=== PATIENT | female | born 1995 | race Caucasian/White ===

== ENCOUNTER 2016-12-20 20:34 | Emergency (ER) | payer OTHER ==
--- NOTE | 2016-12-20 23:16 | ED NURSING NOTES ---
Clinical Report - Nurses [facility] [address] [place] [address] 12/20/2016 20:39 Patient: JESSICA VELASCO TRIAGE Triage time 20:47 Dec 20 2016. Acuity: LEVEL 4. Chief Complaint: RIGHT LOWER EXTREMITY PAIN. Alert. No acute distress. BEREKET COMA SCORE: [place] Coma Scale: 15- eyes open spontaneously (4); best verbal response- oriented x 4 (5); best motor response- obeys commands (6). --20:55 Tami Ghosh R.N. 20:47 12/20/16. BP: 142/77. HR: 110. RR: 16. O2 saturation: 97%. Temp: 98.7 F. Pain level now: 12/11. --20:55 Tami Ghosh R.N. Weight: 120.2 kg stated. Height/Length: 69 inches Per Patient. BMI: 39.2. --20:55 Tami Ghosh R.N. Medications None. --20:52 Tami Ghosh R.N. Allergies Codeine. --20:52 Tami Ghosh R.N. History Arrived by private vehicle. Historian: patient. No injury occurred. This occurred (about 2 weeks ago). It is described as radiating (right toes). She has had trouble walking. Treatment SAND FILLER: Ice and (walking boot). PAST MEDICAL HX: Tetanus status: up-to-date. Immunizations: up-to-date. Last normal menstrual period- has nexplanon implant so LMP was several months ago. SOCIAL HX: Current every day heavy tobacco smoker (cigarette)- less than 1 pack per day. Occasional alcohol use. No drug use. No infectious disease exposure. SELF HARM ASSESSMENT: A self harm assessment was performed. The patient answered "no" to the question "Do you have thoughts of harming or killing yourself?" and "Have you recently had thoughts about harming or killing others?". FALL RISK ASSESSMENT: Fall risk assessment completed. No fall risk identified. NUTRITIONAL RISK ASSESSMENT: The nutritional risk assessment revealed no deficiencies. FUNCTIONAL ASSESSMENT: Functional assessment: no impairments noted. LEARNING NEEDS ASSESSMENT: The learning needs assessment revealed no barriers. ABUSE ASSESSMENT: Abuse assessment: The patient was asked "Do you feel safe in your home?". SKIN INTEGRITY ASSESSMENT: Skin integrity risk assessment completed. No skin integrity risk identified. --20:55 Tami Ghosh R.N. ( pt states that she went to walk-in clinic and was told that she had "torn tendons"). --20:57 Tami Ghosh R.N. PROBLEMS: None. --20:52 Tami Ghosh R.N. ADDITIONAL SURGERIES: Dental Surgery. Tonsillectomy. --20:52 Tami Ghosh R.N. Interventions ID band on patient. To room. --20:55 Tami Ghosh R.N. PHYSICAL ASSESSMENT Ambulatory to room. GENERAL / NEURO / PSYCH: Oriented X 4. Alert. Appears in no acute distress. EXTREMITIES: Extremity pulses are within normal limits. Neuro-vascular status intact to the extremity. No lower extremity edema. Right foot, plantar aspect: tenderness. SKIN: Skin is warm and dry. --20:56 Tami Ghosh R.N. NURSING PROGRESS NOTES Patient identifiers checked. Call light placed in reach. Side rails up. Bed placed in lowest position. Brakes of bed on. --20:56 Tami Ghosh R.N. Care transferred and report received. --22:22 Breana Mello R.N. Portable right foot x-ray performed. --22:46 Breana Mello R.N. Patient informed about reason for wait and about plan of care. --23:04 Breana Mello R.N. DISPOSITION / DISCHARGE Condition at departure: stable. No learning barriers present. Discharge instructions provided and reviewed with the patient. Reviewed medication(s) side effects, precautions, dosing and course information. Prescription(s) given to the patient. Patient verbalized understanding. Written instructions provided in Thai. The patient was discharged home. She left the Emergency Department ambulatory and via private vehicle. --23:34 Breana Mello R.N. 23:20 12/20/16. BP: deferred. HR: 96. RR: 15. O2 saturation: 98% on room air. Temp: deferred. Pena-Youngblood pain scale: 09/11. --23:34 Breana Mello R.N. Locked/Released at 12/20/2016 23:34 by Breana Mello R.N.
--- NOTE | 2016-12-20 23:16 | ED CLINICAL REPORT ---
Clinical Report - Physicians/Mid Levels [facility] [address] [place] [place] [address] 12/20/2016 20:39 Patient: JESSICA VELASCO Time Seen: 20:48. Arrived- By private vehicle. HISTORY OF PRESENT ILLNESS Chief Complaint: LOWER EXTREMITY PAIN. This started several weeks ago and is still present. It was gradual in onset and has been constant and waxing/waning. Severity is described as being severe. It has become recently worse. The quality is noted to be aching and "pain". Symptoms located in the area of the right foot. The patient has had difficulty walking. No sensory loss or motor loss. ( she says that it is worse in the morning when she first tries to walk). Patient denies an injury. Recent medical care: The patient was seen recently at another facility. Seen for similar symptoms. Evaluation/treatment- she was given a walker boot No x-rays performed. Diagnosis: ("torn tendons"). REVIEW OF SYSTEMS she came here because she says that she can't get in to see her PCP for a month. All systems otherwise negative, except as recorded above. PAST HISTORY Medications: None. Allergies: Codeine. SOCIAL HISTORY Current every day heavy tobacco smoker (cigarette)- less than 1 pack per day. Occasional alcohol use. No drug use. FAMILY HISTORY No significant family medical history. ADDITIONAL NOTES The nursing notes have been reviewed. PHYSICAL EXAM Vital Signs: 12/20/2016 20:47 BP: 142/77. HR: 110. RR: 16. O2 saturation: 97%. Temp: 98.7 F. Pain level now: 7/10. Have been reviewed. Appearance: Alert. Eyes: Pupils equal, round and reactive to light. ENT: Pharynx normal. Neck: Neck supple. CVS: Normal heart rate and rhythm. Heart sounds normal. Respiratory: No respiratory distress. Breath sounds normal. Abdomen: Soft and nontender. No organomegaly. Back: Normal inspection. Skin: Skin warm and dry. Normal skin color. Normal skin turgor. Extremities: Right foot: moderate swelling located in the plantar aspect of the foot and heel. No signs of infection involving the lower extremities. No calf tenderness. Extremities otherwise negative. Gait: Gait not tested due to pain. LABS, X-RAYS, AND EKG X-Rays: Right foot negative. The X-rays were independently viewed by me. PROGRESS AND PROCEDURES Course of Care: Patient is stable. Patient/family counseled. Old medical records ordered. Disposition: Discharged. Condition: stable. CLINICAL IMPRESSION Right plantar fasciitis INSTRUCTIONS You may walk and bear weight as tolerated. (Discontinue the use of your Orthopedic boot as discussed. Talk with the order detailer about whether you would benefit from physical therapy as discussed.). Warnings: Further evaluation is necessary. GENERAL WARNINGS: Return or contact your physician immediately if your condition worsens or changes unexpectedly, if not improving as expected, or if other problems arise. Prescription Medications: Naproxen 500 mg tablets: take 1 orally every 12 hours as needed for pain. Dispense twenty (20). No refills. plantar orthotics dispensed one pair use as directed. Understanding of the discharge instructions verbalized by patient. Follow-up with: Cristo Nance DPM, Podiatry, , [facility], [address] [place] [address], [address] [place] [address] Follow up in seven days. Call for the next available appointment. (Electronically signed by Faisal Valle MD 12/21/2016 3:07)
--- NOTE | 2016-12-20 23:16 | ED ORDER SUMMARY ---
..... Patient: JESSICA VELACSO OrderSheet [facility] VisitID: [id number] [address] [place] [address] 21y, F Registration Date/Time: 12/20/2016 ORDER SHEET Weight: 120.2 kg (stated) Allergies: Codeine GENERAL ORDERS: Foot 3V Right Urgent (21:06 12/20/2016 Taz VALDIVIA) (21:12 [facility]) MEDICATION ORDERS: IV FLUIDS: ORDER SHEET NOTES: [Electronically signed by Breana Mello R.N. (23:34 12/20/2016)] [Electronically signed by Faisal Valle MD (03:07 12/21/2016)] [Electronically locked/signed by Breana Mello R.N. (23:34 12/20/2016)]
--- NOTE | 2016-12-20 23:16 | ED NURSING NOTES ---
Clinical Report - Nurses [facility] [address] [place] [address] 12/20/2016 20:39 Patient: JESSICA VELASCO TRIAGE Triage time 20:47 Dec 20 2016. Acuity: LEVEL 4. Chief Complaint: RIGHT LOWER EXTREMITY PAIN. Alert. No acute distress. BEREKET COMA SCORE: [place] Coma Scale: 15- eyes open spontaneously (4); best verbal response- oriented x 4 (5); best motor response- obeys commands (6). --20:55 Tami Ghosh R.N. 20:47 12/20/16. BP: 142/77. HR: 110. RR: 16. O2 saturation: 97%. Temp: 98.7 F. Pain level now: 12/11. --20:55 Tami Ghosh R.N. Weight: 120.2 kg stated. Height/Length: 69 inches Per Patient. BMI: 39.2. --20:55 Tami Ghosh R.N. Medications None. --20:52 Tami Ghosh R.N. Allergies Codeine. --20:52 Tami Ghosh R.N. History Arrived by private vehicle. Historian: patient. No injury occurred. This occurred (about 2 weeks ago). It is described as radiating (right toes). She has had trouble walking. Treatment BORDERER: Ice and (walking boot). PAST MEDICAL HX: Tetanus status: up-to-date. Immunizations: up-to-date. Last normal menstrual period- has nexplanon implant so LMP was several months ago. SOCIAL HX: Current every day heavy tobacco smoker (cigarette)- less than 1 pack per day. Occasional alcohol use. No drug use. No infectious disease exposure. SELF HARM ASSESSMENT: A self harm assessment was performed. The patient answered "no" to the question "Do you have thoughts of harming or killing yourself?" and "Have you recently had thoughts about harming or killing others?". FALL RISK ASSESSMENT: Fall risk assessment completed. No fall risk identified. NUTRITIONAL RISK ASSESSMENT: The nutritional risk assessment revealed no deficiencies. FUNCTIONAL ASSESSMENT: Functional assessment: no impairments noted. LEARNING NEEDS ASSESSMENT: The learning needs assessment revealed no barriers. ABUSE ASSESSMENT: Abuse assessment: The patient was asked "Do you feel safe in your home?". SKIN INTEGRITY ASSESSMENT: Skin integrity risk assessment completed. No skin integrity risk identified. --20:55 Tami Ghosh R.N. ( pt states that she went to walk-in clinic and was told that she had "torn tendons"). --20:57 Tami Ghosh R.N. PROBLEMS: None. --20:52 Tami Ghosh R.N. ADDITIONAL SURGERIES: Dental Surgery. Tonsillectomy. --20:52 Tami Ghosh R.N. Interventions ID band on patient. To room. --20:55 Tami Ghosh R.N. PHYSICAL ASSESSMENT Ambulatory to room. GENERAL / NEURO / PSYCH: Oriented X 4. Alert. Appears in no acute distress. EXTREMITIES: Extremity pulses are within normal limits. Neuro-vascular status intact to the extremity. No lower extremity edema. Right foot, plantar aspect: tenderness. SKIN: Skin is warm and dry. --20:56 Tami Ghosh R.N. NURSING PROGRESS NOTES Patient identifiers checked. Call light placed in reach. Side rails up. Bed placed in lowest position. Brakes of bed on. --20:56 Tami Ghosh R.N. Care transferred and report received. --22:22 Breana Mello R.N. Portable right foot x-ray performed. --22:46 Breana Mello R.N. Patient informed about reason for wait and about plan of care. --23:04 Breana Mello R.N. DISPOSITION / DISCHARGE Condition at departure: stable. No learning barriers present. Discharge instructions provided and reviewed with the patient. Reviewed medication(s) side effects, precautions, dosing and course information. Prescription(s) given to the patient. Patient verbalized understanding. Written instructions provided in Vietnamese. The patient was discharged home. She left the Emergency Department ambulatory and via private vehicle. --23:34 Breana Mello R.N. 23:20 12/20/16. BP: deferred. HR: 96. RR: 15. O2 saturation: 98% on room air. Temp: deferred. Pena-Youngblood pain scale: 09/11. --23:34 Breana Mello R.N. Locked/Released at 12/20/2016 23:34 by Breana Mello R.N.
--- NOTE | 2016-12-20 23:16 | ED CLINICAL REPORT ---
Clinical Report - Physicians/Mid Levels [facility] [address] [place] [place] [address] 12/20/2016 20:39 Patient: JESSICA VELASCO Time Seen: 20:48. Arrived- By private vehicle. HISTORY OF PRESENT ILLNESS Chief Complaint: LOWER EXTREMITY PAIN. This started several weeks ago and is still present. It was gradual in onset and has been constant and waxing/waning. Severity is described as being severe. It has become recently worse. The quality is noted to be aching and "pain". Symptoms located in the area of the right foot. The patient has had difficulty walking. No sensory loss or motor loss. ( she says that it is worse in the morning when she first tries to walk). Patient denies an injury. Recent medical care: The patient was seen recently at another facility. Seen for similar symptoms. Evaluation/treatment- she was given a walker boot No x-rays performed. Diagnosis: ("torn tendons"). REVIEW OF SYSTEMS she came here because she says that she can't get in to see her PCP for a month. All systems otherwise negative, except as recorded above. PAST HISTORY Medications: None. Allergies: Codeine. SOCIAL HISTORY Current every day heavy tobacco smoker (cigarette)- less than 1 pack per day. Occasional alcohol use. No drug use. FAMILY HISTORY No significant family medical history. ADDITIONAL NOTES The nursing notes have been reviewed. PHYSICAL EXAM Vital Signs: 12/20/2016 20:47 BP: 142/77. HR: 110. RR: 16. O2 saturation: 97%. Temp: 98.7 F. Pain level now: 7/10. Have been reviewed. Appearance: Alert. Eyes: Pupils equal, round and reactive to light. ENT: Pharynx normal. Neck: Neck supple. CVS: Normal heart rate and rhythm. Heart sounds normal. Respiratory: No respiratory distress. Breath sounds normal. Abdomen: Soft and nontender. No organomegaly. Back: Normal inspection. Skin: Skin warm and dry. Normal skin color. Normal skin turgor. Extremities: Right foot: moderate swelling located in the plantar aspect of the foot and heel. No signs of infection involving the lower extremities. No calf tenderness. Extremities otherwise negative. Gait: Gait not tested due to pain. LABS, X-RAYS, AND EKG X-Rays: Right foot negative. The X-rays were independently viewed by me. PROGRESS AND PROCEDURES Course of Care: Patient is stable. Patient/family counseled. Old medical records ordered. Disposition: Discharged. Condition: stable. CLINICAL IMPRESSION Right plantar fasciitis INSTRUCTIONS You may walk and bear weight as tolerated. (Discontinue the use of your Orthopedic boot as discussed. Talk with the crate liner about whether you would benefit from physical therapy as discussed.). Warnings: Further evaluation is necessary. GENERAL WARNINGS: Return or contact your physician immediately if your condition worsens or changes unexpectedly, if not improving as expected, or if other problems arise. Prescription Medications: Naproxen 500 mg tablets: take 1 orally every 12 hours as needed for pain. Dispense twenty (20). No refills. plantar orthotics dispensed one pair use as directed. Understanding of the discharge instructions verbalized by patient. Follow-up with: Cristo Nance DPM, Podiatry, , [facility], [address] [place] [address], [address] [place] [address] Follow up in seven days. Call for the next available appointment. (Electronically signed by Faisal Valle MD 12/21/2016 3:07)
--- NOTE | 2016-12-20 23:16 | ED ORDER SUMMARY ---
..... Patient: JESSICA VELASCO OrderSheet [facility] VisitID: [id number] [address] [place] [address] 21y, F Registration Date/Time: 12/20/2016 ORDER SHEET Weight: 120.2 kg (stated) Allergies: Codeine GENERAL ORDERS: Foot 3V Right Urgent (21:06 12/20/2016 Taz VALDIVIA) (21:12 [facility]) MEDICATION ORDERS: IV FLUIDS: ORDER SHEET NOTES: [Electronically signed by Breana Mello R.N. (23:34 12/20/2016)] [Electronically signed by Faisal Valle MD (03:07 12/21/2016)] [Electronically locked/signed by Breana Mello R.N. (23:34 12/20/2016)]
--- NOTE | 2016-12-20 23:21 | DIAGNOSTIC IMAGING REPORT ---
PROCEDURE: XR FOOT 3 VIEWS - RIGHT INDICATION: R FOOT PAIN TECHNIQUE: Three views. COMPARISON: None. FINDINGS: Osseous structures and joint spaces are normal. IMPRESSION: 1. Normal right foot.
--- NOTE | 2016-12-21 03:07 | ED DISCHARGE INSTRUCTIONS ---
Patient: JESSICA VELASCO General Instructions [facility] VisitID: [id number] [address] [place] [address] 21y, F Registration Date/Time: 12/20/2016 Right plantar fasciitis INSTRUCTIONS You may walk and bear weight as tolerated. (Discontinue the use of your Orthopedic boot as discussed. Talk with the skip hoist engineer about whether you would benefit from physical therapy as discussed.). Warnings: Further evaluation is necessary. GENERAL WARNINGS: Return or contact your physician immediately if your condition worsens or changes unexpectedly, if not improving as expected, or if other problems arise. Prescription Medications: Naproxen 500 mg tablets: take 1 orally every 12 hours as needed for pain. Dispense twenty (20). No refills. plantar orthotics dispensed one pair use as directed. Understanding of the discharge instructions verbalized by patient. Follow-up with: Cristo Nance DPM, Podiatry, , [facility], [address] [place] [address], [address] [address] Follow up in seven days. Call for the next available appointment. ADDITIONAL INFORMATION Plantar Fasciitis The plantar fascia is a thick fibrous layer of tissue that covers the bones on the bottom of your foot. It supports the foot bones in an arched position. can develop gradually or suddenly. It usually affects one foot at a time. Heel pain can be sharp and feel like a knife sticking in the bottom of your foot. Pain may occur after exercising, long distance jogging, stair climbing, long periods of standing, or after getting up from a seated position. Risk factors include arthritis, diabetes, obesity or recent weight gain, flat-foot, high arch, wearing high heels or loose shoes or shoes with a poor arch support. Foot pain from this condition is usually worse in the morning and improves with walking. By the end of the day there may be a dull aching. Treatment requires short-term rest and controlling inflammation. It may take up to nine months before all symptoms go away with the measures described below. Rarely, a steroid injection into the foot or surgery may be needed. Home Care If you are overweight, lose weight to promote healing. Choose supportive shoes with good arch support and shock absorbency. Replace athletic shoes when they become worn out. Dont walk or run barefoot. Shoe inserts are an important part of treatment. These will provide optimal arch support. While you can buy [id number] shoe inserts inexpensively, the best ones are those made for you by a skip hoist engineer (natural resources specialist). Night splints (provided by a skip hoist engineer) keep the heel stretched out while you sleep and prevent morning pain. Avoid activities that stress the feet: jogging, prolonged standing or walking, contact sports, etc. First thing in the morning and before sports, stretch the bottom of your feet. Gently flex your ankle so the foot moves toward your knee. Icing may help control heel pain. Apply an ice pack (ice cubes in a plastic bag, wrapped in a towel) to the heel for 10-20 minutes as a preventive or after an acute flare of symptoms. You may repeat this every 1-2 hours as needed. You may use acetaminophen (Tylenol) or ibuprofen (Motrin, Advil) to control pain, unless another medicine was prescribed. [NOTE: If you have chronic liver or kidney disease or ever had a stomach ulcer or GI bleeding, talk with your doctor before using these medicines.] Follow Up with your doctor or a skip hoist engineer (natural resources specialist) as advised by our staff. Call for an appointment if pain worsens or there is no relief after a few weeks of home treatment. Shoe inserts, a night splint or a special boot may be required. [NOTE: If x-rays were taken, they will be reviewed by a radiologist. You will be notified of any new findings that may affect your care.] Return Promptly or contact your physician if any of the following occurs: Foot swelling or redness with increasing pain Naproxen Sodium Oral tablet What is this medicine? NAPROXEN (na PROX en) is a non-steroidal anti-inflammatory drug (NSAID). It is used to reduce swelling and to treat pain. This medicine may be used for dental pain, headache, or painful monthly periods. It is also used for painful joint and muscular problems such as arthritis, tendinitis, bursitis, and gout. How should I use this medicine? Take this medicine by mouth with a glass of water. Follow the directions on the prescription label. Take it with food if your stomach gets upset. Try to not lie down for at least 10 minutes after you take it. Take your medicine at regular intervals. Do not take your medicine more often than directed. Long-term, continuous use may increase the risk of heart attack or stroke. A special MedGuide will be given to you by the pharmacist with each prescription and refill. Be sure to read this information carefully each time. Talk to your tripoler regarding the use of this medicine in children. Special care may be needed. What side effects may I notice from receiving this medicine? Side effects that you should report to your doctor or health home care administrator as soon as possible: black or bloody stools, blood in the urine or vomit blurred vision chest pain difficulty breathing or wheezing nausea or vomiting severe stomach pain skin rash, skin redness, blistering or peeling skin, hives, or itching slurred speech or weakness on one side of the body swelling of eyelids, throat, lips unexplained weight gain or swelling unusually weak or tired yellowing of eyes or skin Side effects that usually do not require medical attention (report to your doctor or health home care administrator if they continue or are bothersome): constipation headache heartburn What may interact with this medicine? alcohol aspirin cidofovir diuretics lithium methotrexate other drugs for inflammation like ketorolac or prednisone pemetrexed probenecid warfarin What if I miss a dose? If you miss a dose, take it as soon as you can. If it is almost time for your next dose, take only that dose. Do not take double or extra doses. Where should I keep my medicine? Keep out of the reach of children. Store at room temperature between 15 and 30 degrees C (59 and 86 degrees F). Keep container tightly closed. Throw away any unused medicine after the expiration date. What should I tell my health care provider before I take this medicine? They need to know if you have any of these conditions: asthma cigarette smoker drink more than 3 alcohol containing drinks a day heart disease or circulation problems such as heart failure or leg edema (fluid retention) high blood pressure kidney disease liver disease stomach bleeding or ulcers an unusual or allergic reaction to naproxen, aspirin, other NSAIDs, other medicines, foods, dyes, or preservatives or trying to get breast-feeding What should I watch for while using this medicine? Tell your doctor or health home care administrator if your pain does not get better. Talk to your doctor before taking another medicine for pain. Do not treat yourself. This medicine does not prevent heart attack or stroke. In fact, this medicine may increase the chance of a heart attack or stroke. The chance may increase with longer use of this medicine and in people who have heart disease. If you take aspirin to prevent heart attack or stroke, talk with your doctor or health home care administrator. Do not take other medicines that contain aspirin, ibuprofen, or naproxen with this medicine. Side effects such as stomach upset, nausea, or ulcers may be more likely to occur. Many medicines available without a prescription should not be taken with this medicine. This medicine can cause ulcers and bleeding in the stomach and intestines at any time during treatment. Do not smoke cigarettes or drink alcohol. These increase irritation to your stomach and can make it more susceptible to damage from this medicine. Ulcers and bleeding can happen without warning symptoms and can cause . You may get drowsy or dizzy. Do not drive, use machinery, or do anything that needs mental alertness until you know how this medicine affects you. Do not stand or sit up quickly, especially if you are an older patient. This reduces the risk of dizzy or fainting spells. This medicine can cause you to bleed more easily. Try to avoid damage to your teeth and gums when you brush or floss your teeth. You have been given the following additional information: Plantar Fasciitis Naproxen Sodium Oral tablet You may walk and bear weight as tolerated. (Electronically signed by Faisal Valle MD 12/21/2016 3:07)
--- NOTE | 2016-12-21 03:07 | ED MAR SUMMARY ---
..... Medication Administration Record [facility] [address] [place], [place] [id number] Patient: JESSICA VELASCO Visit ID: [id number] 21y, F Weight: 120.2 kg Height/Length: 69 in BMI: 39.2 ALLERGIES: Codeine
--- NOTE | 2016-12-21 03:07 | ED DISCHARGE INSTRUCTIONS ---
Patient: JESSICA VELASCO General Instructions [facility] VisitID: [id number] [address] [place] [address] 21y, F Registration Date/Time: 12/20/2016 Right plantar fasciitis INSTRUCTIONS You may walk and bear weight as tolerated. (Discontinue the use of your Orthopedic boot as discussed. Talk with the fruit buying grader about whether you would benefit from physical therapy as discussed.). Warnings: Further evaluation is necessary. GENERAL WARNINGS: Return or contact your physician immediately if your condition worsens or changes unexpectedly, if not improving as expected, or if other problems arise. Prescription Medications: Naproxen 500 mg tablets: take 1 orally every 12 hours as needed for pain. Dispense twenty (20). No refills. plantar orthotics dispensed one pair use as directed. Understanding of the discharge instructions verbalized by patient. Follow-up with: Cristo Nance DPM, Podiatry, , [facility], [address] [place] [address], [address] [address] Follow up in seven days. Call for the next available appointment. ADDITIONAL INFORMATION Plantar Fasciitis The plantar fascia is a thick fibrous layer of tissue that covers the bones on the bottom of your foot. It supports the foot bones in an arched position. can develop gradually or suddenly. It usually affects one foot at a time. Heel pain can be sharp and feel like a knife sticking in the bottom of your foot. Pain may occur after exercising, long distance jogging, stair climbing, long periods of standing, or after getting up from a seated position. Risk factors include arthritis, diabetes, obesity or recent weight gain, flat-foot, high arch, wearing high heels or loose shoes or shoes with a poor arch support. Foot pain from this condition is usually worse in the morning and improves with walking. By the end of the day there may be a dull aching. Treatment requires short-term rest and controlling inflammation. It may take up to nine months before all symptoms go away with the measures described below. Rarely, a steroid injection into the foot or surgery may be needed. Home Care If you are overweight, lose weight to promote healing. Choose supportive shoes with good arch support and shock absorbency. Replace athletic shoes when they become worn out. Dont walk or run barefoot. Shoe inserts are an important part of treatment. These will provide optimal arch support. While you can buy [id number] shoe inserts inexpensively, the best ones are those made for you by a fruit buying grader (diabetes specialist). Night splints (provided by a fruit buying grader) keep the heel stretched out while you sleep and prevent morning pain. Avoid activities that stress the feet: jogging, prolonged standing or walking, contact sports, etc. First thing in the morning and before sports, stretch the bottom of your feet. Gently flex your ankle so the foot moves toward your knee. Icing may help control heel pain. Apply an ice pack (ice cubes in a plastic bag, wrapped in a towel) to the heel for 10-20 minutes as a preventive or after an acute flare of symptoms. You may repeat this every 1-2 hours as needed. You may use acetaminophen (Tylenol) or ibuprofen (Motrin, Advil) to control pain, unless another medicine was prescribed. [NOTE: If you have chronic liver or kidney disease or ever had a stomach ulcer or GI bleeding, talk with your doctor before using these medicines.] Follow Up with your doctor or a fruit buying grader (diabetes specialist) as advised by our staff. Call for an appointment if pain worsens or there is no relief after a few weeks of home treatment. Shoe inserts, a night splint or a special boot may be required. [NOTE: If x-rays were taken, they will be reviewed by a radiologist. You will be notified of any new findings that may affect your care.] Return Promptly or contact your physician if any of the following occurs: Foot swelling or redness with increasing pain Naproxen Sodium Oral tablet What is this medicine? NAPROXEN (na PROX en) is a non-steroidal anti-inflammatory drug (NSAID). It is used to reduce swelling and to treat pain. This medicine may be used for dental pain, headache, or painful monthly periods. It is also used for painful joint and muscular problems such as arthritis, tendinitis, bursitis, and gout. How should I use this medicine? Take this medicine by mouth with a glass of water. Follow the directions on the prescription label. Take it with food if your stomach gets upset. Try to not lie down for at least 10 minutes after you take it. Take your medicine at regular intervals. Do not take your medicine more often than directed. Long-term, continuous use may increase the risk of heart attack or stroke. A special MedGuide will be given to you by the pharmacist with each prescription and refill. Be sure to read this information carefully each time. Talk to your penology teacher regarding the use of this medicine in children. Special care may be needed. What side effects may I notice from receiving this medicine? Side effects that you should report to your doctor or health skin care therapist as soon as possible: black or bloody stools, blood in the urine or vomit blurred vision chest pain difficulty breathing or wheezing nausea or vomiting severe stomach pain skin rash, skin redness, blistering or peeling skin, hives, or itching slurred speech or weakness on one side of the body swelling of eyelids, throat, lips unexplained weight gain or swelling unusually weak or tired yellowing of eyes or skin Side effects that usually do not require medical attention (report to your doctor or health skin care therapist if they continue or are bothersome): constipation headache heartburn What may interact with this medicine? alcohol aspirin cidofovir diuretics lithium methotrexate other drugs for inflammation like ketorolac or prednisone pemetrexed probenecid warfarin What if I miss a dose? If you miss a dose, take it as soon as you can. If it is almost time for your next dose, take only that dose. Do not take double or extra doses. Where should I keep my medicine? Keep out of the reach of children. Store at room temperature between 15 and 30 degrees C (59 and 86 degrees F). Keep container tightly closed. Throw away any unused medicine after the expiration date. What should I tell my health care provider before I take this medicine? They need to know if you have any of these conditions: asthma cigarette smoker drink more than 3 alcohol containing drinks a day heart disease or circulation problems such as heart failure or leg edema (fluid retention) high blood pressure kidney disease liver disease stomach bleeding or ulcers an unusual or allergic reaction to naproxen, aspirin, other NSAIDs, other medicines, foods, dyes, or preservatives or trying to get breast-feeding What should I watch for while using this medicine? Tell your doctor or health skin care therapist if your pain does not get better. Talk to your doctor before taking another medicine for pain. Do not treat yourself. This medicine does not prevent heart attack or stroke. In fact, this medicine may increase the chance of a heart attack or stroke. The chance may increase with longer use of this medicine and in people who have heart disease. If you take aspirin to prevent heart attack or stroke, talk with your doctor or health skin care therapist. Do not take other medicines that contain aspirin, ibuprofen, or naproxen with this medicine. Side effects such as stomach upset, nausea, or ulcers may be more likely to occur. Many medicines available without a prescription should not be taken with this medicine. This medicine can cause ulcers and bleeding in the stomach and intestines at any time during treatment. Do not smoke cigarettes or drink alcohol. These increase irritation to your stomach and can make it more susceptible to damage from this medicine. Ulcers and bleeding can happen without warning symptoms and can cause . You may get drowsy or dizzy. Do not drive, use machinery, or do anything that needs mental alertness until you know how this medicine affects you. Do not stand or sit up quickly, especially if you are an older patient. This reduces the risk of dizzy or fainting spells. This medicine can cause you to bleed more easily. Try to avoid damage to your teeth and gums when you brush or floss your teeth. You have been given the following additional information: Plantar Fasciitis Naproxen Sodium Oral tablet You may walk and bear weight as tolerated. (Electronically signed by Faisal Valle MD 12/21/2016 3:07)
--- NOTE | 2016-12-21 03:07 | ED MED RECONCILIATION SUMMARY ---
Patient: JESSICA VELASCO Medication Reconciliation Report [facility] VisitID: [id number] [address] [place] [address] 21y, F Registration Date/Time: 12/20/2016 Weight: 120.2 kg Height/Length: 69 in. BMI: 39.2 ALLERGIES: Codeine The patient's Home Medications are listed below: NONE. The source(s) of the original Home Medication information: Not obtained. The following Medications were given to the patient in the Emergency Department: None. The following Medications were prescribed to the patient: plantar orthotics dispensed one pair use as directed. -- Faisal Valle MD Naproxen 500 mg tablets: take 1 orally every 12 hours as needed for pain. Dispense twenty (20). No refills. -- Faisal Valle MD
--- NOTE | 2016-12-21 03:07 | ED MAR SUMMARY ---
..... Medication Administration Record [facility] [address] [place], [place] [id number] Patient: JESSICA VELASCO Visit ID: [id number] 21y, F Weight: 120.2 kg Height/Length: 69 in BMI: 39.2 ALLERGIES: Codeine
--- NOTE | 2016-12-21 03:07 | ED MED RECONCILIATION SUMMARY ---
Patient: JESSICA VELASCO Medication Reconciliation Report [facility] VisitID: [id number] [address] [place] [address] 21y, F Registration Date/Time: 12/20/2016 Weight: 120.2 kg Height/Length: 69 in. BMI: 39.2 ALLERGIES: Codeine The patient's Home Medications are listed below: NONE. The source(s) of the original Home Medication information: Not obtained. The following Medications were given to the patient in the Emergency Department: None. The following Medications were prescribed to the patient: plantar orthotics dispensed one pair use as directed. -- Faisal Valle MD Naproxen 500 mg tablets: take 1 orally every 12 hours as needed for pain. Dispense twenty (20). No refills. -- Faisal Valle MD
== END 2016-12-20 23:20 | disposition home or self-care (01) ==
LOC: ED SRH 20:34
DX: M72.2 Plantar fascial fibromatosis (principal); F17.210 Nicotine dependence, cigarettes, uncomplicated; Z88.5 Allergy status to narcotic agent